=== PATIENT | female | born 1980 | race Caucasian/White ===

== ENCOUNTER 2021-10-02 01:53 | Emergency (ER) | payer SELFPAY ==
[~2021-10-02] VITALS: Ht 172.7 cm; Wt 86.2 kg
--- NOTE | 2021-10-02 02:20 | NUR ---
TO ER BED 9. BHANU C/O DIARRHEA N/V STARTED ON THE . PT STATES "HAS BEEN EATING MANY DIFFERENT FOODS BECAUSE SHE VISITING FROM [place]". CHANGED INTO GOWN. EMESIS BAG PROVIDED. CONNECTED TO MONITOR. AWAITING MD MCMILLAN
[2021-10-02] MEDS ORDERED: FAMOTIDINE/PF INJ 20 MG/2 ML VIAL IV ONE ×2 (02:50→03:00)
[2021-10-02] MEDS ORDERED: METOCLOPRAMIDE HCL 10 MG/2 ML VIAL ONE (02:50)
[2021-10-02] MEDS ORDERED: METOCLOPRAMIDE HCL 10 MG/2 ML VIAL IV ONE (03:00)
[2021-10-02] MEDS ORDERED: IV NS 0.9% 1,000 ML BAG IV ONE (03:00)
--- NOTE | 2021-10-02 03:01 | NUR ---
IV LINE ESTABLISHED, LAC 18G. BLOOD COLLECTED AND SENT TO LAB
--- NOTE | 2021-10-02 03:02 | NUR ---
PT UNABLE TO PROVIDE URINE SAMPLE AT THIS TIME, URINE CUP PROVIDED TO PT
[2021-10-02 03:05] LABS: BASOPHILS % (AUTO) 0.3 % (0.0-2.0); EOSINOPHILS % (AUTO) 0.9 % (0.0-6.0); HEMATOCRIT 44 % (33-45); LYMPHOCYTES # (AUTO) 1.1 K/uL (0.8-4.8); LYMPHOCYTES % (AUTO) 19.6 % (20.0-44.0); MEAN CORPUSCULAR HGB CONC 34 g/dl (31.0-36.0); MEAN CORPUSCULAR VOLUME 86 fL (82-100); MONOCYTES # (AUTO) 0.6 K/uL (0.1-1.30); MONOCYTES % (AUTO) 10.8 % (2.0-12.0); NEUTROPHILS # (AUTO) 3.7 K/uL (1.8-8.9); NEUTROPHILS % (AUTO) 68.4 % (43.0-81.0); PLATELET COUNT (AUTO) 272 K/uL (150-450); RED BLOOD CELL COUNT(AUTO) 5.12 MIL/uL (4.0-5.2); WHITE BLOOD COUNT (AUTO) 5.5 K/uL (4.3-11.0)
[2021-10-02 03:31] LABS: CALCIUM, SERUM 8.7 mg/dL (8.5-10.1); CREATININE 0.8 mg/dL (0.6-1.3); POTASSIUM 3.7 mmol/L (3.5-5.1)
[2021-10-02 03:46] LABS: BILIRUBIN,URINE SMALL (NEGATIVE); COLOR,URINE YELLOW (YELLOW); LEUKOCYTE ESTERASE ,URINE NEGATIVE (NEGATIVE); NITRITE, URINE NEGATIVE (NEGATIVE); PH,URINE 5.5 (5.0-8.0); PROTEIN,URINE NEGATIVE (NEGATIVE); UGLUCOSE NEGATIVE (NEGATIVE); UROBILINOGEN,URINE 0.2 EU/dL (0.2)
[2021-10-02 03:49] LABS: ALBUMIN 3.9 g/dL (3.4-5.0); BILIRUBIN,DIRECT 0.1 mg/dL (0.0-0.2); BILIRUBIN,TOTAL 0.3 mg/dL (0.2-1.0); TOTAL PROTEIN, SERUM 7.8 g/dL (6.4-8.2)
[2021-10-02] MEDS ORDERED: METO-295 PO (04:58)
[2021-10-02] MEDS ORDERED: ONDA4TAB5 PO (04:58)
[2021-10-02 05:31] VITALS: BP 135/64
--- NOTE | 2021-10-02 05:31 | NUR ---
Patient discharged to home in stable condition. Written and verbal after care instructions given. Patient verbalizes understanding of instruction.
--- NOTE | 2021-10-02 05:31 | NUR ---
IV removed. Catheter intact and site benign. Pressure and 4x4 applied to site. No bleeding noted.
== END 2021-10-02 05:32 | disposition home or self-care (01) ==
LOC: ER 01:56
DX: R11.2 Nausea with vomiting, unspecified (principal); R19.7 Diarrhea, unspecified; Z88.6 Allergy status to analgesic agent; Z60.2 Problems related to living alone; Z79.899 Other long term (current) drug therapy
CPT/HCPCS: 36415; 80048; 80076; 81003; 83690; 84703; 85025; 96361; 96374; 96375; 99284; J2765; J3490; J7030